=== PATIENT | male | born 1950 | race African-American/Black ===

== ENCOUNTER 2016-08-08 03:40 | Emergency (ER) | payer MEDICARE, MEDICAID ==
[~2016-08-08] VITALS: Ht 175.3 cm; Wt 83.0 kg
[2016-08-08] MEDS ORDERED: KETOROLAC 60MG/2ML VIAL IM ONE (05:30)
[2016-08-08 05:55] LABS: BASOPHILS % 0.6 % (0.0-2.0); EOSINOPHILS % 0.9 % (0.0-5.0); HEMATOCRIT. 39.5 % (42.0-52.0); HEMOGLOBIN. 13.3 g/dL (14.0-18.0); LYMPHOCYTES % 21.4 % (20.0-50.0); MEAN CORPUSCULAR HEMOGLOBIN 29.6 pg (28.0-32.0); MEAN CORPUSCULAR VOLUME 88.1 fL (80.0-94.0); MEAN PLATELET VOLUME 8.6 fl (7.4-10.4); NEUTROPHILS % 67.1 % (40.0-76.0); PLATELET 188 x1000/uL (130-400); RED BLOOD CELL COUNT 4.48 mill/uL (4.7-6.1); RED CELL DISTRIBUTION WIDTH 14.3 % (11.6-14.6)
[2016-08-08 08:57] VITALS: BP 148/77
== END 2016-08-08 09:30 | disposition home or self-care (01) ==
LOC: ER 03:41
DX: M79.671 Pain in right foot (principal); Z88.2 Allergy status to sulfonamides; Z87.442 Personal history of urinary calculi
CPT/HCPCS: 36415; 73630; 84550; 85025; 96372; 99285; J1885

== ENCOUNTER 2021-03-11 18:29 | Inpatient (IN) | payer MEDICARE, OTHER ==
[~2021-03-11] VITALS: Ht 172.7 cm; Wt 65.5 kg
[2021-03-11] MEDS ORDERED: ONDANSETRON HCL 4MG/2ML INJ IV STA (19:56)
[2021-03-11] MEDS ORDERED: ACETAMINOPHEN 325MG TABLET PO STA (19:56)
[2021-03-11] MEDS ORDERED: SODIUM CHLORIDE 0.9% 1,000 ML IV ONE (20:00)
[2021-03-11] MEDS ORDERED: VISCOUS LIDOCAINE 2% 15 ML UDC PO ONE (20:00)
[2021-03-11] MEDS ORDERED: MAGNESIUM/ALUMINUM HYDROXIDE/SIMETHICONE 30ML UDC PO ONE (20:00)
[2021-03-11 22:27] LABS: BASOPHILS % 0.4 % (0.0-2.0); EOSINOPHILS % 1.1 % (0.0-5.0); HEMATOCRIT. 41.9 % (42.0-52.0); HEMOGLOBIN. 13.6 g/dL (14.0-18.0); LYMPHOCYTES % 19.2 % (20.0-50.0); MEAN CORPUSCULAR HEMOGLOBIN 30.1 pg (28.0-32.0); MEAN CORPUSCULAR VOLUME 92.6 fL (80.0-94.0); MONOCYTES % 9.8 % (2.0-8.0); NEUTROPHILS % 69.5 % (40.0-76.0); PLATELET 205 x1000/uL (130-400); RED BLOOD CELL COUNT 4.52 mill/uL (4.7-6.1); RED CELL DISTRIBUTION WIDTH 13.8 % (11.6-14.6)
[2021-03-11 22:32] LABS: CHLORIDE 103 mEq/L (98-107)
[2021-03-12] MEDS ORDERED: DOCUSATE SODIUM 100MG CAPSULE PO PRN (00:45)
[2021-03-12] MEDS ORDERED: HYDROCODONE/ACETAMINOPHEN 5/325MG TABLET PO PRN (00:45)
[2021-03-12] MEDS ORDERED: GUAIFENESIN 200MG/10ML SUGAR FREE UDC PO PRN (00:45)
[2021-03-12] MEDS ORDERED: ONDANSETRON HCL 4MG/2ML INJ IV PRN (00:45)
[2021-03-12] MEDS ORDERED: CLONIDINE 0.1MG TABLET PO PRN (00:45)
[2021-03-12] MEDS ORDERED: MAGNESIUM/ALUMINUM HYDROXIDE/SIMETHICONE 30ML UDC PO PRN (00:45)
[2021-03-12] MEDS ORDERED: MORPHINE SULFATE 2 MG/ML CPJ (NOT FOR IM USE) IV PRN (00:45)
[2021-03-12] MEDS ORDERED: IPRATROPIUM/ALBUTEROL 0.5-3(2.5)MG/3ML NEB NEB PRN (00:45)
[2021-03-12 07:10] LABS: CHLORIDE 106 mEq/L (98-107)
[2021-03-12 07:19] LABS: CREATINE KINASE MB FRACTION 1.4 ng/mL (0.5-3.6)
[2021-03-12 09:07] VITALS: BP 154/64
[2021-03-12] MEDS ORDERED: NALOXONE HCL 0.4MG/ML VIAL IV PRN (09:15)
[2021-03-12] MEDS: ASPIRIN 81MG EC TABLET PO SCH (09:39)
[2021-03-12] MEDS: ENOXAPARIN 40MG/0.4ML SYR SUBCUT SCH (09:41)
[2021-03-12 12:16] VITALS: BP 134/65
[2021-03-12 15:51] VITALS: BP 116/69
[2021-03-12 17:32] LABS: CREATINE KINASE 151 IU/L (39-308)
[2021-03-12 17:33] LABS: CREATINE KINASE MB FRACTION < 1.0 ng/mL (0.5-3.6)
[2021-03-12 20:00] VITALS: BP 125/67
[2021-03-13] VITALS: BP 135/67
[2021-03-13 04:00] VITALS: BP 145/69
[2021-03-13 06:49] LABS: BASOPHILS % 0.3 % (0.0-2.0); EOSINOPHILS % 1.7 % (0.0-5.0); HEMATOCRIT. 37.5 % (42.0-52.0); HEMOGLOBIN. 12.8 g/dL (14.0-18.0); LYMPHOCYTES % 29.7 % (20.0-50.0); MEAN CORPUSCULAR HEMOGLOBIN 31.3 pg (28.0-32.0); MEAN CORPUSCULAR VOLUME 91.8 fL (80.0-94.0); MEAN PLATELET VOLUME 9.1 fl (7.4-10.4); MONOCYTES % 11.1 % (2.0-8.0); NEUTROPHILS % 57.2 % (40.0-76.0); PLATELET 203 x1000/uL (130-400); RED BLOOD CELL COUNT 4.09 mill/uL (4.7-6.1); RED CELL DISTRIBUTION WIDTH 13.4 % (11.6-14.6)
[2021-03-13] MEDS ORDERED: PANTOPRAZOLE 40MG DR TABLET PO SCH (07:20)
[2021-03-13] MEDS: ASPIRIN 81MG EC TABLET PO SCH (10:10)
[2021-03-13] MEDS: ENOXAPARIN 40MG/0.4ML SYR SUBCUT SCH (10:11)
[2021-03-13 12:09] VITALS: BP 146/77
[2021-03-13 15:30] VITALS: BP 127/77
[2021-03-13 16:16] VITALS: BP 127/77
[2021-03-13] MEDS ORDERED: PANT40TA51 PO (16:37)
== END 2021-03-13 18:57 | DRG 392 ==
LOC: ER 18:29 → MICUSO 23:51 → 6WST 03-12 09:02
PROVIDERS: ADMIT Internal Medicine; ATTEND Internal Medicine
DX: K21.9 Gastro-esophageal reflux disease without esophagitis (principal); D64.9 Anemia, unspecified; F12.90 Cannabis use, unspecified, uncomplicated; H40.9 Unspecified glaucoma; I10 Essential (primary) hypertension; Z20.822 Contact with and (suspected) exposure to COVID-19; H54.40 Blindness, one eye, unspecified eye; Z87.442 Personal history of urinary calculi; Z88.2 Allergy status to sulfonamides; R77.8 Other specified abnormalities of plasma proteins
CPT/HCPCS: 36415; 71045; 80048; 80053; 80061; 82550; 82553; 83880; 84132; 84484; 85025; 87426; 93005; 93306; 93970; 99285; J1650; J2405; J7030

== ENCOUNTER 2021-03-18 14:55 | Emergency (ER) | payer MEDICARE, OTHER ==
[~2021-03-18] VITALS: Ht 172.7 cm; Wt 80.0 kg
[~2021-03-18 14:55] MED LIST: PANT40TA51 PO
[2021-03-18 14:59] VITALS: BP 148/72
[2021-03-18] MEDS ORDERED: VISCOUS LIDOCAINE 2% 15 ML UDC PO ONE (16:00)
[2021-03-18] MEDS ORDERED: FAMOTIDINE 20MG/2ML VIAL IV ONE (16:00)
[2021-03-18] MEDS ORDERED: MAGNESIUM/ALUMINUM HYDROXIDE/SIMETHICONE 30ML UDC PO ONE (16:00)
== END 2021-03-18 16:18 | disposition left against medical advice (07) ==
LOC: ER 14:55
DX: R07.89 Other chest pain (principal); I10 Essential (primary) hypertension; H40.9 Unspecified glaucoma; Z88.2 Allergy status to sulfonamides
CPT/HCPCS: 93005; 99283

== ENCOUNTER 2021-03-23 06:00 | Inpatient (IN) | payer MEDICARE, OTHER ==
[~2021-03-23] VITALS: Ht 172.7 cm; Wt 68.1 kg
[2021-03-23] MEDS ORDERED: ONDANSETRON HCL 4MG/2ML INJ IV STA (06:46)
[2021-03-23] MEDS ORDERED: FAMOTIDINE 20MG/2ML VIAL IV ONE (07:00)
[2021-03-23] MEDS ORDERED: SODIUM CHLORIDE 0.9% 500 ML IV ONE (07:00)
[2021-03-23 08:05] LABS: HEMATOCRIT. 50.8 % (42.0-52.0); MEAN CORPUSCULAR HEMOGLOBIN 30.7 pg (28.0-32.0); MEAN CORPUSCULAR VOLUME 91.8 fL (80.0-94.0); MEAN PLATELET VOLUME 8.6 fl (7.4-10.4); PLATELET 152 x1000/uL (130-400); RED BLOOD CELL COUNT 5.54 mill/uL (4.7-6.1); RED CELL DISTRIBUTION WIDTH 13.7 % (11.6-14.6)
[2021-03-23 08:07] LABS: CHLORIDE 103 mEq/L (98-107)
[2021-03-23 09:11] LABS: PLATELET ESTIMATE NORMAL
[2021-03-23] MEDS ORDERED: ENOXAPARIN 80MG/0.8ML SYR SUBCUT ONE (09:30)
[2021-03-23] MEDS ORDERED: NICARDIPINE 100MCG/ML 10ML VIAL (CATH LAB) IV ONE (09:51)
[2021-03-23] MEDS ORDERED: HEPARIN SODIUM 1,000 UNIT/1ML VIAL IV ONE (09:51)
[2021-03-23] MEDS ORDERED: NITROGLYCERIN 50MCG/ML 10ML VIAL (CATH LAB) IV ONE (09:51)
[2021-03-23] MEDS ORDERED: ASPIRIN 81MG TABLET PO ONE (10:15)
[2021-03-23 10:58] LABS: PROTHROMBIN TIME 10.3 sec (9.6-11.0)
[2021-03-23 11:05] LABS: CREATINE KINASE MB FRACTION 7.4 ng/mL (0.5-3.6)
[2021-03-23] MEDS ORDERED: ACETAMINOPHEN 325MG TABLET PO PRN ×2 (13:45→16:45)
[2021-03-23] MEDS ORDERED: MAGNESIUM/ALUMINUM HYDROXIDE/SIMETHICONE 30ML UDC PO PRN (13:45)
[2021-03-23] MEDS ORDERED: IPRATROPIUM/ALBUTEROL 0.5-3(2.5)MG/3ML NEB HHN PRN (13:45)
[2021-03-23] MEDS ORDERED: DOCUSATE SODIUM 100MG CAPSULE PO PRN (13:45)
[2021-03-23] MEDS ORDERED: HYDROCODONE/ACETAMINOPHEN 5/325MG TABLET PO PRN (13:45)
[2021-03-23] MEDS ORDERED: ONDANSETRON HCL 4MG/2ML INJ IV PRN (13:45)
[2021-03-23] MEDS ORDERED: NALOXONE HCL 0.4MG/ML VIAL IV PRN (14:00)
[2021-03-23] MEDS: METOPROLOL TARTRATE 25MG TABLET PO SCH ×2 (14:00→20:46)
[2021-03-23] MEDS ORDERED: LIDOCAINE HCL 1% 20ML VIAL (Pyxis) INJ ONE (15:02)
[2021-03-23] MEDS ORDERED: IODIXANOL 320MG/ML 100 ML BOTTLE IV ONE (15:02)
[2021-03-23] MEDS ORDERED: VERAPAMIL HCL 2.5 MG/1 ML 2ML VIAL IV ONE (15:03)
[2021-03-23] MEDS ORDERED: MIDAZOLAM HCL 2 MG/2 ML VIAL ONE (15:17)
[2021-03-23] MEDS ORDERED: FENTANYL CITRATE/PF 50MCG/ML 2ML VIAL ONE (15:17)
[2021-03-23] MEDS ORDERED: DIPHENHYDRAMINE 50MG/ML VIAL ONE (15:38)
[2021-03-23] MEDS ORDERED: ATROPINE SULFATE 1MG/10ML SYR IV PRN (16:30)
[2021-03-23] MEDS ORDERED: HEPARIN 5000 UNITS/ML VIAL IV SCH ×2 (16:30→18:00)
[2021-03-23] MEDS ORDERED: HEPARIN 5000 UNITS/ML VIAL IV PRN ×4 (16:30→21:00)
[2021-03-23 16:31] VITALS: BP 147/78
[2021-03-23 16:45] VITALS: BP 147/78
[2021-03-23] MEDS ORDERED: NITROGLYCERIN 0.4MG TABLET SL SL PRN (16:45)
[2021-03-23] MEDS: SODIUM CHLORIDE 0.9% 1,000 ML IV SCH (17:38)
[2021-03-23] MEDS: ISOSORBIDE DINITRATE 10MG TABLET PO SCH (17:39)
[2021-03-23 17:53] LABS: INR 1.1; PARTIAL THROMBOPLASTIN TIME 73.1 sec (23.4-31.0); PROTHROMBIN TIME 11.4 sec (9.6-11.0)
[2021-03-23 18:01] VITALS: BP 144/68
[2021-03-23 18:09] LABS: CHLORIDE 109 mEq/L (98-107)
[2021-03-23] MEDS ORDERED: HEPARIN 25,000 UNITS PREMIX 250 ML IV PRN (19:30)
[2021-03-23 20:00] VITALS: BP 129/88
[2021-03-23] MEDS: ATORVASTATIN CALCIUM 40MG TABLET PO SCH (20:46)
[2021-03-23] MEDS ORDERED: ALLOPURINOL 300 MG TABLET PO SCH (21:00)
[2021-03-23] MEDS ORDERED: ASCORBIC ACID 500 MG TABLET PO SCH (21:00)
[2021-03-23] MEDS ORDERED: CHLORHEXIDINE GLUCONATE 4% EXTERNAL USE TOP SCH (21:00)
[2021-03-23] MEDS ORDERED: DOCUSATE SODIUM 100MG CAPSULE PO SCH (21:00)
[2021-03-23] MEDS ORDERED: DIPHENHYDRAMINE 25MG CAPSULE PO PRN (21:00)
[2021-03-23] MEDS ORDERED: BISACODYL 10MG SUPP PR PRN (21:00)
[2021-03-23 22:00] VITALS: BP 134/67
[2021-03-24] VITALS (73 sets, daily range): BP systolic 0–191; BP diastolic 0–81
[2021-03-24] MEDS: SODIUM CHLORIDE 0.9% 1,000 ML IV SCH ×2 (02:15→14:58)
[2021-03-24] MEDS ORDERED: INSULIN REGULAR (DRIP) 100 UNITS in SODIUM CHLORIDE 0.9% 99 ML IV SCH (06:00)
[2021-03-24] MEDS ORDERED: EPINEPHRINE 5 MG in DEXT 5% WATER 245 ML IV SCH (06:00)
[2021-03-24] MEDS ORDERED: AMINOCAPROIC ACID 5,000 MG in SODIUM CHLORIDE 0.9% 230 ML IV SCH (06:00)
[2021-03-24] MEDS ORDERED: DEL NIDO ELECTROLYTE-S(PH 7.4) 1,000 ML IV SCH ×2 (06:00)
[2021-03-24] MEDS ORDERED: NOREPINEPHRINE 8 MG in DEXT 5% WATER 242 ML IV SCH (06:00)
[2021-03-24] MEDS ORDERED: SEVOFLURANE 250 ML LIQUID INH ONE (06:00)
[2021-03-24] MEDS ORDERED: PAPAVERINE HCL 180MG in SODIUM CHLORIDE 0.9% 24ML IV SCH (06:00)
[2021-03-24] MEDS ORDERED: DOPAMINE 400MG/250ML PREMIX 250 ML IV ONE (06:00)
[2021-03-24] MEDS ORDERED: HEPARIN 1000 UNITS/ML 10ML ONE (06:00)
[2021-03-24] MEDS ORDERED: NICARDIPINE 50 MG in NS 230 ML IV SCH (06:00)
[2021-03-24] MEDS ORDERED: CEFAZOLIN 2,000 MG in DEXT 5% WATER 100 ML IV SCH (06:00)
[2021-03-24] MEDS ORDERED: ACETAMINOPHEN 500MG TABLET ONE (06:01)
[2021-03-24] MEDS: ISOSORBIDE DINITRATE 10MG TABLET PO SCH ×3 (06:13→21:17)
[2021-03-24] MEDS ORDERED: SODIUM CHLORIDE 0.9% INJ 10ML FLUSH IVF ONE (06:17)
[2021-03-24] MEDS ORDERED: SKIN ADHESIVE 0.7 GM EA TOP ONE (06:17)
[2021-03-24] MEDS ORDERED: BACITRACIN 15GM TUBE TOP ONE (06:17)
[2021-03-24] MEDS ORDERED: THROMBIN (BOVINE) 5000 UNITS/VIAL TOP ONE (06:17)
[2021-03-24] MEDS ORDERED: SODIUM CHLORIDE 0.9% 4,000 ML ONE (06:18)
[2021-03-24] MEDS ORDERED: POLYMYXIN B SULFATE 500000 UNITS/VIAL ONE (06:18)
[2021-03-24] MEDS ORDERED: LACTATED RINGERS 2,000 ML IV ONE (06:18)
[2021-03-24 06:55] LABS: BASOPHILS % 0.6 % (0.0-2.0); HEMATOCRIT. 36.3 % (42.0-52.0); HEMOGLOBIN. 12.5 g/dL (14.0-18.0); LYMPHOCYTES % 35.8 % (20.0-50.0); MEAN CORPUSCULAR HEMOGLOBIN 31.5 pg (28.0-32.0); MEAN CORPUSCULAR VOLUME 91.7 fL (80.0-94.0); MEAN PLATELET VOLUME 8.7 fl (7.4-10.4); NEUTROPHILS % 49.6 % (40.0-76.0); PLATELET 239 x1000/uL (130-400); RED BLOOD CELL COUNT 3.96 mill/uL (4.7-6.1); RED CELL DISTRIBUTION WIDTH 13.7 % (11.6-14.6)
[2021-03-24 07:04] LABS: CHLORIDE 106 mEq/L (98-107)
[2021-03-24 07:11] LABS: PHOSPHORUS 2.4 mg/dL (2.5-4.9)
[2021-03-24 07:18] LABS: AMYLASE 118 IU/L (25-115)
[2021-03-24] MEDS ORDERED: FENTANYL CITRATE/PF 50MCG/ML 5ML VIAL ONE (07:48)
[2021-03-24] MEDS ORDERED: LABETALOL HCL 5MG/ML VIAL 20ML IV ONE (07:50)
[2021-03-24] MEDS ORDERED: FUROSEMIDE 20MG/2ML VIAL ONE (07:50)
[2021-03-24] MEDS ORDERED: PROPOFOL 200MG/20ML VIAL IV ONE (07:50)
[2021-03-24] MEDS ORDERED: ROCURONIUM BROMIDE 10MG/ML VIAL 5ML IV ONE (07:50)
[2021-03-24] MEDS ORDERED: ETOMIDATE 2MG/ML 10ML VIAL IV ONE (07:50)
[2021-03-24] MEDS ORDERED: FUROSEMIDE 100MG/10ML VIAL ONE (07:56)
[2021-03-24] MEDS ORDERED: AMINOCAPROIC ACID 250 MG/ML 20ML VIAL ONE ×2 (07:58→08:03)
[2021-03-24] MEDS ORDERED: CALCIUM CHLORIDE 1GM/10ML SYR IV ONE (07:58)
[2021-03-24] MEDS ORDERED: LIDOCAINE HCL 2% 5ML SYRINGE IV ONE (07:58)
[2021-03-24] MEDS ORDERED: MAGNESIUM SULFATE 5GM/10ML VIAL IV ONE (08:04)
[2021-03-24] MEDS ORDERED: LIDOCAINE HCL/PF 2% 20MG/ML 5 ML/VIAL ONE (08:11)
[2021-03-24 08:48] LABS: CLARITY URINE CLEAR (CLEAR); COLOR URINE YELLOW (YELLOW); KETONES URINE TRACE (NEGATIVE); LEUKOCYTE ESTERASE URINE NEGATIVE (NEGATIVE); NITRITE URINE NEGATIVE (NEGATIVE); OCCULT BLOOD URINE NEGATIVE (NEGATIVE); PROTEIN URINE NEGATIVE (NEGATIVE); SPECIFIC GRAVITY URINE 1.023 (1.005-1.030)
[2021-03-24] MEDS ORDERED: POTASSIUM CHLORIDE 10MEQ IN WATER 50ML PREMIX IV ONE (08:51)
[2021-03-24] MEDS ORDERED: HEPARIN 10,000 UNITS/ML VIAL ONE (08:51)
[2021-03-24] MEDS ORDERED: CHLORHEXIDINE GLUCONATE 4% EXTERNAL USE TOP SCH (09:00)
[2021-03-24] MEDS: METOPROLOL TARTRATE 25MG TABLET PO SCH ×2 (09:00→21:17)
[2021-03-24] MEDS ORDERED: ENOXAPARIN 40MG/0.4ML SYR SUBCUT SCH (09:00)
[2021-03-24] MEDS: ASPIRIN 325MG TABLET PO SCH (09:00)
[2021-03-24] MEDS: PANTOPRAZOLE SODIUM 40 MG/VIAL IV SCH (09:00)
[2021-03-24 09:02] LABS: *COCAINE SCREEN URINE NEGATIVE (NEGATIVE); METHADONE URINE SCREEN NEGATIVE (NEGATIVE); OPIATES URINE SCREEN NEGATIVE (NEGATIVE)
[2021-03-24 09:03] LABS: *AMPHETAMINES SCREEN URINE NEGATIVE (NEGATIVE); *BARBITURATES SCREEN URINE NEGATIVE (NEGATIVE); *BENZODIAZEPINES SCREEN URINE PRESUMTIVE POSITIVE (NEGATIVE); CANNABINOID URINE SCREEN PRESUMTIVE POSITIVE (NEGATIVE); PHENCYCLIDINE URINE SCREEN NEGATIVE (NEGATIVE)
[2021-03-24] MEDS ORDERED: KCL 10MEQ/50ML PREMIX 100 ML IV PRN (10:00)
[2021-03-24] MEDS ORDERED: INSULIN REGULAR (DRIP) 100 UNITS in SODIUM CHLORIDE 0.9% 100 ML IV SCH (10:00)
[2021-03-24] MEDS ORDERED: DEXTROSE 50% WATER 50ML SYRINGE IV PRN ×2 (10:00)
[2021-03-24] MEDS ORDERED: KCL 10MEQ/50ML PREMIX 200 ML IV PRN (10:00)
[2021-03-24] MEDS ORDERED: PROTAMINE SULFATE 10MG/ML VIAL 25ML IV ONE (10:17)
[2021-03-24] MEDS ORDERED: NEOSTIGMINE METHYLSULFATE 1MG/ML 10 ML VIAL ONE (10:29)
[2021-03-24] MEDS ORDERED: GLYCOPYRROLATE 0.2 MG/ML 2ML VIAL ONE (10:29)
[2021-03-24] MEDS ORDERED: KETOROLAC 30MG/ML VIAL ONE (10:29)
[2021-03-24] MEDS ORDERED: KETOROLAC 30MG/ML VIAL IV PRN (10:45)
[2021-03-24] MEDS ORDERED: DOPAMINE 400MG/250ML PREMIX 250 ML IV SCH (10:45)
[2021-03-24] MEDS ORDERED: OXYCODONE HCL/ACETAMINOPHEN 5/325MG TABLET PO PRN (10:45)
[2021-03-24] MEDS ORDERED: MAGNESIUM 1 G PREMIX 100 ML IV PRN (10:45)
[2021-03-24] MEDS ORDERED: ACETAMINOPHEN 325MG TABLET PO PRN (10:45)
[2021-03-24] MEDS ORDERED: SODIUM CHLORIDE 0.9% 500 ML IV PRN (10:45)
[2021-03-24] MEDS ORDERED: CALCIUM CHLORIDE 3,000 MG in DEXT 5% WATER 250 ML IV PRN (10:45)
[2021-03-24] MEDS ORDERED: MAGNESIUM 2 G PREMIX 50 ML IV PRN (10:45)
[2021-03-24] MEDS ORDERED: ALBUMIN HUMAN 25GM/100ML (25%) IV PRN (10:45)
[2021-03-24] MEDS ORDERED: ALBUMIN HUMAN 12.5G/250ML (5%) IV PRN (10:45)
[2021-03-24] MEDS ORDERED: MAGNESIUM SULFATE 3 GM in DEXT 5% WATER 100 ML IV PRN (10:45)
[2021-03-24] MEDS ORDERED: HYDRALAZINE 20MG/ML VIAL ONE ×2 (11:12→11:25)
[2021-03-24] MEDS ORDERED: HYDROMORPHONE HCL/PF 2MG/ML (OR) ONE (11:14)
[2021-03-24] MEDS ORDERED: FENTANYL CITRATE/PF 50MCG/ML 2ML VIAL ONE (11:22)
[2021-03-24 12:00] LABS: BASOPHILS % 0.2 % (0.0-2.0); EOSINOPHILS % 1.1 % (0.0-5.0); HEMATOCRIT. 36.8 % (42.0-52.0); HEMOGLOBIN. 12.2 g/dL (14.0-18.0); LYMPHOCYTES % 13.5 % (20.0-50.0); MEAN CORPUSCULAR HEMOGLOBIN 30.7 pg (28.0-32.0); MEAN CORPUSCULAR VOLUME 92.2 fL (80.0-94.0); MEAN PLATELET VOLUME 8.5 fl (7.4-10.4); NEUTROPHILS % 80.2 % (40.0-76.0); PLATELET 262 x1000/uL (130-400); RED BLOOD CELL COUNT 3.99 mill/uL (4.7-6.1); RED CELL DISTRIBUTION WIDTH 13.4 % (11.6-14.6)
[2021-03-24 12:03] LABS: CHLORIDE 107 mEq/L (98-107)
[2021-03-24 12:07] LABS: BG BASE EXCESS -4.1 mmol/L (-2.0-2.0); BG CARBOXYHEMOGLOBIN 0.6 % (0.5-1.5); BG DEOXYHEMOGLOBIN 2.2 % (0.0-5.0); BG FRACTION INSPIRED OXYGEN 100; BG METHEMOGLOBIN 0.2 % (0.0-1.5); BG OXYGEN SATURATION 97.8 % (92.0-98.5); BG PCO2 43.8 mmHg (35.0-45.0); BG PH 7.318 (7.350-7.450); BG PO2 105.1 mmHg (75.0-100.0); BG SAMPLE SITE ALINE; BG VENT MODE MASK - NRB
[2021-03-24] MEDS: ONDANSETRON HCL 4MG/2ML INJ IV PRN (12:37)
[2021-03-24] MEDS: KETOROLAC 15MG/ML VIAL IV PRN ×2 (12:40→21:18)
[2021-03-24] MEDS: KCL 10MEQ/50ML PREMIX 150 ML IV PRN ×3 (12:41→14:57)
[2021-03-24] MEDS: BLOOD SUGAR DIAGNOSTIC STRIP TEST SCH ×11 (12:57→23:27)
[2021-03-24] MEDS: MORPHINE SULFATE 2 MG/ML CPJ (NOT FOR IM USE) IV PRN (14:52)
[2021-03-24] MEDS ORDERED: ALBUMIN HUMAN 25GM/100ML (25%) IV NR (16:15)
[2021-03-24] MEDS: CEFAZOLIN 1000MG PREMIX 50 ML IV SCH ×2 (16:16→23:36)
[2021-03-24] MEDS: DEXT 5%/0.45% NACL 1000ML 1,000 ML IV SCH (16:20)
[2021-03-24] MEDS: DOCUSATE SODIUM 100MG CAPSULE PO SCH (16:20)
[2021-03-24] MEDS: BACITRACIN 15GM TUBE TOP SCH (17:00)
[2021-03-24] MEDS: IPRATROPIUM/ALBUTEROL 0.5-3(2.5)MG/3ML NEB HHN SCH (20:01)
[2021-03-24] MEDS: ATORVASTATIN CALCIUM 40MG TABLET PO SCH (21:17)
[2021-03-24] MEDS: CLONIDINE 0.1MG TABLET PO PRN (21:38)
[2021-03-24] MEDS: OXYCODONE HCL/ACETAMINOPHEN 5/325MG TABLET PO PRN (23:25)
[2021-03-25] VITALS (124 sets, daily range): BP systolic 102–214; BP diastolic 47–90
[2021-03-25] MEDS: BLOOD SUGAR DIAGNOSTIC STRIP TEST SCH ×20 (00:08→21:25)
[2021-03-25] MEDS: MORPHINE SULFATE 2 MG/ML CPJ (NOT FOR IM USE) IV PRN ×2 (01:22→08:18)
[2021-03-25] MEDS: ONDANSETRON HCL 4MG/2ML INJ IV PRN ×2 (01:27→08:16)
[2021-03-25] MEDS: IPRATROPIUM/ALBUTEROL 0.5-3(2.5)MG/3ML NEB HHN SCH ×5 (02:04→20:04)
[2021-03-25 06:09] LABS: BASOPHILS % 0.2 % (0.0-2.0); CHLORIDE 109 mEq/L (98-107); EOSINOPHILS % 1.2 % (0.0-5.0); HEMOGLOBIN. 10.9 g/dL (14.0-18.0); LYMPHOCYTES % 13.2 % (20.0-50.0); MEAN CORPUSCULAR HEMOGLOBIN 30.9 pg (28.0-32.0); MEAN CORPUSCULAR VOLUME 90.7 fL (80.0-94.0); MEAN PLATELET VOLUME 8.4 fl (7.4-10.4); MONOCYTES % 8.9 % (2.0-8.0); NEUTROPHILS % 76.5 % (40.0-76.0); PLATELET 237 x1000/uL (130-400); RED BLOOD CELL COUNT 3.53 mill/uL (4.7-6.1); RED CELL DISTRIBUTION WIDTH 13.8 % (11.6-14.6)
[2021-03-25] MEDS: CLONIDINE 0.1MG TABLET PO PRN (06:12)
[2021-03-25] MEDS: ISOSORBIDE DINITRATE 10MG TABLET PO SCH ×3 (06:58→21:24)
[2021-03-25] MEDS: CEFAZOLIN 1000MG PREMIX 50 ML IV SCH ×2 (07:17→15:01)
[2021-03-25] MEDS: DOCUSATE SODIUM 100MG CAPSULE PO SCH (08:15)
[2021-03-25] MEDS: ASPIRIN 325MG TABLET PO SCH (08:15)
[2021-03-25] MEDS: METOPROLOL TARTRATE 25MG TABLET PO SCH ×2 (08:16→21:24)
[2021-03-25] MEDS: FAMOTIDINE 20MG/2ML VIAL IV SCH (08:17)
[2021-03-25] MEDS: PANTOPRAZOLE SODIUM 40 MG/VIAL IV SCH (08:17)
[2021-03-25] MEDS: BACITRACIN 15GM TUBE TOP SCH ×2 (09:19→17:19)
[2021-03-25] MEDS: ALBUMIN HUMAN 25GM/100ML (25%) IV SCH ×3 (13:04→17:19)
[2021-03-25] MEDS ORDERED: FUROSEMIDE 40MG/4ML VIAL IVP NR (16:00)
[2021-03-25] MEDS: DEXT 5%/0.45% NACL 1000ML 1,000 ML IV SCH (16:09)
[2021-03-25] MEDS: CLOPIDOGREL 75MG TABLET PO SCH (16:15)
[2021-03-25] MEDS: MINERAL OIL 30ML BOTTLE PO SCH (17:00)
[2021-03-25] MEDS ORDERED: TRAMADOL HCL/ACETAMINOPHEN 37.5/325MG TABLET PO PRN (17:00)
[2021-03-25] MEDS: DOCUSATE SODIUM 250MG CAPSULE PO SCH (17:19)
[2021-03-25] MEDS ORDERED: ALBUMIN HUMAN 25GM/100ML (25%) IV NR (21:00)
[2021-03-25] MEDS: ATORVASTATIN CALCIUM 40MG TABLET PO SCH (21:15)
[2021-03-26] VITALS (37 sets, daily range): BP systolic 105–140; BP diastolic 60–88
[2021-03-26] MEDS: ONDANSETRON HCL 4MG/2ML INJ IV PRN ×2 (00:13→10:38)
[2021-03-26] MEDS: MORPHINE SULFATE 2 MG/ML CPJ (NOT FOR IM USE) IV PRN ×3 (00:14→19:41)
[2021-03-26] MEDS: IPRATROPIUM/ALBUTEROL 0.5-3(2.5)MG/3ML NEB HHN SCH ×4 (00:34→17:21)
[2021-03-26 06:23] LABS: BASOPHILS % 0.2 % (0.0-2.0); EOSINOPHILS % 1.5 % (0.0-5.0); HEMATOCRIT. 28.6 % (42.0-52.0); HEMOGLOBIN. 9.8 g/dL (14.0-18.0); LYMPHOCYTES % 12.9 % (20.0-50.0); MEAN CORPUSCULAR HEMOGLOBIN 30.9 pg (28.0-32.0); MEAN CORPUSCULAR VOLUME 90.6 fL (80.0-94.0); MEAN PLATELET VOLUME 8.6 fl (7.4-10.4); MONOCYTES % 12.3 % (2.0-8.0); NEUTROPHILS % 73.1 % (40.0-76.0); PLATELET 217 x1000/uL (130-400); RED BLOOD CELL COUNT 3.16 mill/uL (4.7-6.1); RED CELL DISTRIBUTION WIDTH 13.2 % (11.6-14.6)
[2021-03-26 06:34] LABS: CHLORIDE 106 mEq/L (98-107)
[2021-03-26] MEDS: ISOSORBIDE DINITRATE 10MG TABLET PO SCH ×3 (06:42→21:47)
[2021-03-26] MEDS: BLOOD SUGAR DIAGNOSTIC STRIP TEST SCH ×4 (07:50→21:47)
[2021-03-26] MEDS: DOCUSATE SODIUM 250MG CAPSULE PO SCH ×2 (10:39→17:07)
[2021-03-26] MEDS: ASPIRIN 81MG TABLET PO SCH (10:39)
[2021-03-26] MEDS: FAMOTIDINE 20MG/2ML VIAL IV SCH (10:39)
[2021-03-26] MEDS: PANTOPRAZOLE SODIUM 40 MG/VIAL IV SCH (10:39)
[2021-03-26] MEDS: CLOPIDOGREL 75MG TABLET PO SCH (10:39)
[2021-03-26] MEDS: METOPROLOL TARTRATE 25MG TABLET PO SCH ×2 (10:39→21:46)
[2021-03-26] MEDS: BACITRACIN 15GM TUBE TOP SCH ×2 (10:40→17:07)
[2021-03-26] MEDS ORDERED: MAGNESIUM 2 G PREMIX 50 ML IV NR (11:00)
[2021-03-26] MEDS: MINERAL OIL 30ML BOTTLE PO SCH (17:00)
[2021-03-26] MEDS: DEXT 5%/0.45% NACL 1000ML 1,000 ML IV SCH (17:07)
[2021-03-26] MEDS: ATORVASTATIN CALCIUM 40MG TABLET PO SCH (21:45)
[2021-03-27] VITALS (14 sets, daily range): BP systolic 96–132; BP diastolic 40–87
[2021-03-27] MEDS: MORPHINE SULFATE 2 MG/ML CPJ (NOT FOR IM USE) IV PRN ×2 (02:28→07:43)
[2021-03-27] MEDS: ISOSORBIDE DINITRATE 10MG TABLET PO SCH ×3 (06:00→17:00)
[2021-03-27] MEDS: BLOOD SUGAR DIAGNOSTIC STRIP TEST SCH ×4 (06:12→21:12)
[2021-03-27 07:15] LABS: CHLORIDE 107 mEq/L (98-107)
[2021-03-27] MEDS: DOCUSATE SODIUM 250MG CAPSULE PO SCH ×2 (07:41→17:19)
[2021-03-27] MEDS: FAMOTIDINE 20MG/2ML VIAL IV SCH (07:41)
[2021-03-27] MEDS: PANTOPRAZOLE SODIUM 40 MG/VIAL IV SCH (07:41)
[2021-03-27] MEDS: MINERAL OIL 30ML BOTTLE PO SCH ×2 (07:41→17:19)
[2021-03-27] MEDS: CLOPIDOGREL 75MG TABLET PO SCH (07:41)
[2021-03-27] MEDS: METOPROLOL TARTRATE 25MG TABLET PO SCH ×2 (07:42→20:47)
[2021-03-27] MEDS: ASPIRIN 81MG TABLET PO SCH (07:42)
[2021-03-27 07:46] LABS: HEMATOCRIT. 31.8 % (42.0-52.0); HEMOGLOBIN. 10.8 g/dL (14.0-18.0); MEAN CORPUSCULAR HEMOGLOBIN 30.8 pg (28.0-32.0); MEAN CORPUSCULAR VOLUME 90.7 fL (80.0-94.0); MEAN PLATELET VOLUME 8.7 fl (7.4-10.4); PLATELET 240 x1000/uL (130-400); RED BLOOD CELL COUNT 3.51 mill/uL (4.7-6.1); RED CELL DISTRIBUTION WIDTH 13.2 % (11.6-14.6)
[2021-03-27] MEDS: IPRATROPIUM/ALBUTEROL 0.5-3(2.5)MG/3ML NEB HHN SCH ×4 (08:50→20:32)
[2021-03-27] MEDS: BACITRACIN 15GM TUBE TOP SCH ×2 (09:00→17:00)
[2021-03-27] MEDS: OXYCODONE HCL/ACETAMINOPHEN 5/325MG TABLET PO PRN (09:43)
[2021-03-27] MEDS: DEXT 5%/0.45% NACL 1000ML 1,000 ML IV SCH (16:15)
[2021-03-27 16:44] LABS: PLATELET ESTIMATE NORMAL
[2021-03-27] MEDS: ATORVASTATIN CALCIUM 40MG TABLET PO SCH (20:46)
[2021-03-28] VITALS (8 sets, daily range): BP systolic 108–150; BP diastolic 69–88
[2021-03-28] MEDS: IPRATROPIUM/ALBUTEROL 0.5-3(2.5)MG/3ML NEB HHN SCH ×3 (00:54→12:38)
[2021-03-28] MEDS: MORPHINE SULFATE 2 MG/ML CPJ (NOT FOR IM USE) IV PRN (05:17)
[2021-03-28 06:35] LABS: BASOPHILS % 0.6 % (0.0-2.0); EOSINOPHILS % 3.2 % (0.0-5.0); HEMATOCRIT. 30.8 % (42.0-52.0); HEMOGLOBIN. 10.6 g/dL (14.0-18.0); LYMPHOCYTES % 13.9 % (20.0-50.0); MEAN CORPUSCULAR HEMOGLOBIN 31.5 pg (28.0-32.0); MEAN CORPUSCULAR VOLUME 91.7 fL (80.0-94.0); MEAN PLATELET VOLUME 8.6 fl (7.4-10.4); MONOCYTES % 14.1 % (2.0-8.0); NEUTROPHILS % 68.2 % (40.0-76.0); PLATELET 271 x1000/uL (130-400); RED BLOOD CELL COUNT 3.35 mill/uL (4.7-6.1); RED CELL DISTRIBUTION WIDTH 12.9 % (11.6-14.6)
[2021-03-28] MEDS: BLOOD SUGAR DIAGNOSTIC STRIP TEST SCH ×2 (06:40→11:50)
[2021-03-28 06:43] LABS: CHLORIDE 104 mEq/L (98-107)
[2021-03-28] MEDS: ASPIRIN 81MG TABLET PO SCH (08:44)
[2021-03-28] MEDS: CLOPIDOGREL 75MG TABLET PO SCH (08:44)
[2021-03-28] MEDS: DOCUSATE SODIUM 250MG CAPSULE PO SCH (08:44)
[2021-03-28] MEDS: FAMOTIDINE 20MG/2ML VIAL IV SCH (08:44)
[2021-03-28] MEDS: ISOSORBIDE DINITRATE 10MG TABLET PO SCH ×2 (08:45→13:37)
[2021-03-28] MEDS: METOPROLOL TARTRATE 25MG TABLET PO SCH (08:45)
[2021-03-28] MEDS: MINERAL OIL 30ML BOTTLE PO SCH (08:46)
[2021-03-28] MEDS ORDERED: CLOP75TA15 PO (11:58)
[2021-03-28] MEDS ORDERED: ISOS10TA2 PO (11:58)
[2021-03-28] MEDS ORDERED: FAMO20TA8 MT (11:58)
[2021-03-28] MEDS ORDERED: LIP40 PO (11:58)
[2021-03-28] MEDS ORDERED: ASPI-1406 MT (11:58)
[2021-03-28] MEDS ORDERED: METO-539 PO (11:58)
[2021-03-28] MEDS: BACITRACIN 15GM TUBE TOP SCH (13:38)
[2021-03-28] MEDS ORDERED: METOPROLOL TARTRATE 50MG TABLET PO SCH (21:00)
== END 2021-03-28 16:55 | disposition home health service (06) | DRG 233 ==
LOC: ER 06:25 → 3WST 10:03 → CVICU 03-24 10:28 → 3WST 03-26 12:31
PROVIDERS: ADMIT Internal Medicine; ATTEND Internal Medicine
PROC: B211YZZ Fluoroscopy of Multiple Coronary Arteries using Other Contrast (ICD-10-PCS; principal; 2021-03-23)
PROC: 4A023N7 Measurement of Cardiac Sampling and Pressure, Left Heart, Percutaneous Approach (ICD-10-PCS; 2021-03-23)
PROC: B54MZZA Ultrasonography of Right Upper Extremity Veins, Guidance (ICD-10-PCS; 2021-03-23)
PROC: 02100Z9 Bypass Coronary Artery, One Artery from Left Internal Mammary, Open Approach (ICD-10-PCS; 2021-03-24)
PROC: 021109W Bypass Coronary Artery, Two Arteries from Aorta with Autologous Venous Tissue, Open Approach (ICD-10-PCS; 2021-03-24)
PROC: 06BP4ZZ Excision of Right Saphenous Vein, Percutaneous Endoscopic Approach (ICD-10-PCS; 2021-03-24)
DX: I21.4 Non-ST elevation (NSTEMI) myocardial infarction (principal); K85.90 Acute pancreatitis without necrosis or infection, unspecified; I10 Essential (primary) hypertension; I25.10 Atherosclerotic heart disease of native coronary artery without angina pectoris; K21.9 Gastro-esophageal reflux disease without esophagitis; Z20.822 Contact with and (suspected) exposure to COVID-19; I25.118 Atherosclerotic heart disease of native coronary artery with other forms of angina pectoris; K59.00 Constipation, unspecified; Z88.2 Allergy status to sulfonamides; Z79.899 Other long term (current) drug therapy
CPT/HCPCS: 36415; 36600; 71045; 80048; 80053; 80076; 80305; 81003; 82150; 82375; 82550; 82553; 82805; 82962; 83735; 83880; 84100; 84484; 85025; 85347; 86850; 86900; 86920; 87426; 93005; 93458; 93880; 93970; 94640; 97110; 97116; 97163; 97165; 97535; 99291; C1729; C1751; C1758; C1769; C1887; C1893; C9113; J0360; J0690; J1170; J1200; J1265; J1644; J1650; J1815; J1885; J1940; J2250; J2270; J2405; J2440; J2704; J2710; J2720; J3010; J3475; J3480; J3490; J7030; J7040; J7050; J7060; J7120; L3908; P9041; P9047; Q9967

== ENCOUNTER 2022-09-22 18:06 | Emergency (ER) | payer MEDICARE, MEDICAID ==
[~2022-09-22] VITALS: Ht 180.3 cm; Wt 77.0 kg
[~2022-09-22 18:06] MED LIST changes: +ASPI-1406 MT; +CLOP75TA15 PO; +FAMO20TA8 MT; +ISOS10TA2 PO; +LIP40 PO; +METO-539 PO; -PANT40TA51 PO
[2022-09-22 18:09] VITALS: O2SAT 99
[2022-09-22 21:08] LABS: BASOPHILS % 0.7 % (0.0-2.0); EOSINOPHILS % 0.5 % (0.0-5.0); HEMATOCRIT. 43.1 % (42.0-52.0); LYMPHOCYTES % 21.6 % (20.0-50.0); MEAN CORPUSCULAR HEMOGLOBIN 30.1 pg (28.0-32.0); MEAN CORPUSCULAR VOLUME 92.5 fL (80.0-94.0); MEAN PLATELET VOLUME 8.7 fl (7.4-10.4); MONOCYTES % 7.6 % (2.0-8.0); NEUTROPHILS % 69.6 % (40.0-76.0); PLATELET 215 x1000/uL (130-400); RED BLOOD CELL COUNT 4.65 mill/uL (4.7-6.1)
[2022-09-22 21:12] LABS: CHLORIDE 108 mEq/L (98-107)
[2022-09-22 21:55] VITALS: BP 167/77; PULSE 54; RESP 16; TEMP 98.8
== END 2022-09-22 23:42 | disposition home or self-care (01) ==
LOC: ER 18:06
DX: R42 Dizziness and giddiness (principal); K21.9 Gastro-esophageal reflux disease without esophagitis; I10 Essential (primary) hypertension; Z79.899 Other long term (current) drug therapy
CPT/HCPCS: 36415; 71045; 80053; 85025; 93005; 99285

== ENCOUNTER → 2023-05-20 | Day surgery (SDC) | payer MEDICARE, MEDICAID ==
[~2023-05-20] VITALS: Ht 152.4 cm; Wt 71.7 kg
[~2023-05-20] MED LIST changes: +FENTANYL CITRATE/PF 50MCG/ML 2ML VIAL ONE; +MIDAZOLAM HCL 2 MG/2 ML VIAL ONE; +TRIAMCINOLONE ACETONIDE 40MG/ML 1ML VIAL ONE; +[UNRECOGNIZED DRUG - OTHER] PO
[2023-05-20] MEDS: LACTATED RINGERS 1,000 ML IV SCH (07:15)
== END | disposition home or self-care (01) ==
LOC: OR 06:36
PROVIDERS: ATTEND Ophthalmology
DX: H40.89 Other specified glaucoma (principal); I25.10 Atherosclerotic heart disease of native coronary artery without angina pectoris; E78.00 Pure hypercholesterolemia, unspecified; Z79.899 Other long term (current) drug therapy; Z98.890 Other specified postprocedural states; Z88.1 Allergy status to other antibiotic agents; Z82.49 Family history of ischemic heart disease and other diseases of the circulatory system; Z83.3 Family history of diabetes mellitus
CPT/HCPCS: 66170; J3010; J2250; J3301; A4217; Z7610 ×20

== ENCOUNTER 2023-06-10 12:50 | Emergency (ER) | payer MEDICARE, MEDICAID ==
[~2023-06-10] VITALS: Ht 177.8 cm; Wt 77.9 kg
[~2023-06-10 12:50] MED LIST changes: -ASPI-1406 MT; -CLOP75TA15 PO; -FAMO20TA8 MT; -FENTANYL CITRATE/PF 50MCG/ML 2ML VIAL ONE; -ISOS10TA2 PO; -METO-539 PO; -MIDAZOLAM HCL 2 MG/2 ML VIAL ONE; -TRIAMCINOLONE ACETONIDE 40MG/ML 1ML VIAL ONE
[2023-06-10 13:01] VITALS: TEMP 98.7; O2SAT 100
[2023-06-10 14:05] LABS: BASOPHILS % 0.4 % (0.0-2.0); EOSINOPHILS % 0.7 % (0.0-5.0); HEMATOCRIT. 42.6 % (42.0-52.0); HEMOGLOBIN. 14.4 g/dL (14.0-18.0); LYMPHOCYTES % 19.7 % (20.0-50.0); MEAN CORPUSCULAR HEMOGLOBIN 31.2 pg (28.0-32.0); MEAN CORPUSCULAR HGB CONC 33.9 g/dL (31.0-37.0); MEAN CORPUSCULAR VOLUME 91.9 fL (80.0-94.0); MEAN PLATELET VOLUME 8.8 fl (7.4-10.4); MONOCYTES % 8.1 % (2.0-8.0); NEUTROPHILS % 71.1 % (40.0-76.0); PLATELET 203 x1000/uL (130-400); RED BLOOD CELL COUNT 4.63 mill/uL (4.7-6.1); RED CELL DISTRIBUTION WIDTH 15.4 % (11.6-14.6)
[2023-06-10 14:11] LABS: CLARITY URINE CLEAR (CLEAR); COLOR URINE YELLOW (YELLOW); GLUCOSE URINE NEGATIVE (NEGATIVE); KETONES URINE NEGATIVE (NEGATIVE); LEUKOCYTE ESTERASE URINE NEGATIVE (NEGATIVE); NITRITE URINE NEGATIVE (NEGATIVE); OCCULT BLOOD URINE 1+ (NEGATIVE); PH URINE 5.5 (4.5-8.0); PROTEIN URINE NEGATIVE (NEGATIVE); SPECIFIC GRAVITY URINE 1.018 (1.005-1.030); UROBILINOGEN URINE 0.2 E.U./dL (0.2-1.0)
[2023-06-10] MEDS: KETOROLAC 30MG/ML VIAL IV STA (14:11)
[2023-06-10] MEDS: MORPHINE SULFATE 4 MG/ML INJ (FOR IV/IM USE) IV STA (14:11)
[2023-06-10] MEDS: ONDANSETRON HCL 4MG/2ML INJ IV STA (14:11)
[2023-06-10] MEDS: SODIUM CHLORIDE 0.9% 1,000 ML IV ONE (14:11)
[2023-06-10 14:20] LABS: ALANINE AMINOTRANSFERASE 19 IU/L (10-49); ALBUMIN 4.7 g/dL (3.2-4.8); ASPARTATE AMINOTRANSFERASE 25 IU/L (<34); CALCIUM 8.8 mg/dL (8.7-10.4); CARBON DIOXIDE 23 mEq/L (21-32); CHLORIDE 105 mEq/L (98-107); GLUCOSE 87 mg/dL (70-105); POTASSIUM 4.1 mEq/L (3.5-5.1); PROTEIN TOTAL 7.9 g/dL (6.0-8.3); SODIUM 137 mEq/L (136-145); UREA NITROGEN BLOOD 16 mg/dL (9-23)
[2023-06-10 14:24] LABS: SQUAMOUS EPITHELIAL CELL URINE RARE /lpf (RARE/1+)
[2023-06-10 14:25] LABS: BACTERIA URINE TRACE; RBC URINE 0-2 /hpf (0-2); WBC URINE 0-2 /hpf (0-2)
[2023-06-10] MEDS ORDERED: TAMS-11 MT (14:58)
[2023-06-10] MEDS ORDERED: IBUP-2028 MT (14:58)
[2023-06-10] MEDS ORDERED: HYDR-4001 MT (14:58)
[2023-06-10] MEDS: KETOROLAC 15MG/ML VIAL IV ONE ×2 (15:15→15:24)
[2023-06-10 15:46] VITALS: BP 158/71; PULSE 81; RESP 19
== END 2023-06-10 15:47 | disposition home or self-care (01) ==
LOC: ER 12:50
DX: N23 Unspecified renal colic (principal); K21.9 Gastro-esophageal reflux disease without esophagitis; I11.9 Hypertensive heart disease without heart failure; I25.2 Old myocardial infarction; E78.00 Pure hypercholesterolemia, unspecified; Z88.2 Allergy status to sulfonamides; Z98.890 Other specified postprocedural states
CPT/HCPCS: 99285; 74176; 96374; 96375; 96361; 80053; 81003; 83690; 85025; 36415; 93005; 96376; J1885 ×2; J2405; J2270; J7030

== ENCOUNTER 2023-06-16 14:37 | Emergency (ER) | payer MEDICARE, MEDICAID ==
[~2023-06-16] VITALS: Ht 172.7 cm; Wt 73.0 kg
[~2023-06-16 14:37] MED LIST changes: +HYDR-4001 MT; +IBUP-2028 MT; +TAMS-11 MT
[2023-06-16 14:39] VITALS: O2SAT 100
[2023-06-16 15:28] LABS: BASOPHILS % 0.3 % (0.0-2.0); EOSINOPHILS % 1.6 % (0.0-5.0); HEMATOCRIT. 39.5 % (42.0-52.0); HEMOGLOBIN. 13.1 g/dL (14.0-18.0); LYMPHOCYTES % 20.5 % (20.0-50.0); MEAN CORPUSCULAR HEMOGLOBIN 30.9 pg (28.0-32.0); MEAN CORPUSCULAR HGB CONC 33.3 g/dL (31.0-37.0); MEAN PLATELET VOLUME 8.6 fl (7.4-10.4); MONOCYTES % 10.7 % (2.0-8.0); NEUTROPHILS % 66.9 % (40.0-76.0); PLATELET 195 x1000/uL (130-400); RED BLOOD CELL COUNT 4.25 mill/uL (4.7-6.1); RED CELL DISTRIBUTION WIDTH 14.8 % (11.6-14.6); WHITE BLOOD COUNT 5.9 x1000/uL (4.5-11.0)
[2023-06-16 15:46] LABS: ALANINE AMINOTRANSFERASE 23 IU/L (10-49); ALBUMIN 4.5 g/dL (3.2-4.8); ASPARTATE AMINOTRANSFERASE 26 IU/L (<34); BILIRUBIN TOTAL 0.4 mg/dL (0.1-1.0); CARBON DIOXIDE 21 mEq/L (21-32); CHLORIDE 109 mEq/L (98-107); CREATININE 1.2 mg/dL (0.6-1.3); GLUCOSE 90 mg/dL (70-105); POTASSIUM 3.9 mEq/L (3.5-5.1); PROTEIN TOTAL 7.1 g/dL (6.0-8.3); SODIUM 139 mEq/L (136-145); UREA NITROGEN BLOOD 18 mg/dL (9-23)
[2023-06-16 15:48] LABS: TROPONIN I HIGH SENSITIVITY < 4 ng/L (3.0-53)
[2023-06-16 17:25] VITALS: BP 147/79; PULSE 79; RESP 16; TEMP 98.4
== END 2023-06-16 17:35 | disposition left against medical advice (07) ==
LOC: ER 14:37
DX: R07.89 Other chest pain (principal); M54.9 Dorsalgia, unspecified; K21.9 Gastro-esophageal reflux disease without esophagitis; Z98.890 Other specified postprocedural states; Z79.899 Other long term (current) drug therapy
CPT/HCPCS: 36415; 71045; 80053; 83880; 84484; 85025; 93005; 99285